=== PATIENT | male | born 1980 | race African-American/Black ===

== ENCOUNTER 2017-03-29 22:59 | Emergency (ER) | payer SELFPAY ==
[~2017-03-29] VITALS: Ht 180.3 cm; Wt 95.3 kg
[~2017-03-29 22:59] MED LIST: ALBUTEROL SULF8.5 GM INH; CLINDAMYCIN HC300 MG ORAL; DOXYCYCLINE MO100 MG ORAL; IBUPROFEN600 MG ORAL; NKM; NORCO 5-325 TA1 EACH ORAL; NORCO1 E1 PO; UNOBMED
[2017-03-29] MEDS ORDERED: Lidocaine 1% MPF 10mg/ml 5ml ONE (23:23)
[2017-03-29] MEDS ORDERED: Lidocaine 1% Plain 30 ml INJ ONE ×2 (23:24→23:30)
[2017-03-29] MEDS ORDERED: Norco 5mg/325mg tab ORAL ONE (23:45)
[2017-03-29] MEDS ORDERED: Azithromycin 250mg tab ORAL ONE (23:45)
[2017-03-29] MEDS ORDERED: HYDROCODON-ACE1 EA15 ORAL (23:57)
[2017-03-29] MEDS ORDERED: DOXYCYCLINE MO100 MG ORAL (23:57)
--- NOTE | 2017-03-29 23:58 | Emergency Room Report ---
History of Present Illness General Chief Complaint: Skin Rash/Abscess Source: Patient Present Illness HPI Is a 36-year-old male with no past history. He presents with 2 issue. This issue is abscess to the right foot. Has been ongoing for last 3 or 4 days. He has similar problem in his arm before. No fever or chills. Worse with walking. 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 Second issue is that he has a penile discharge. Clear color. Ongoing for last 2 days. No fever or chills. Is sexually active with unprotected sex. No joint pain. No fever. Allergies: Coded Allergies: No Known Allergies (Unverified , 01/11/13) Patient History Past Medical History: see triage record, old chart reviewed Past Surgical History: none Pertinent Family History: none Social History: Denies: smoking Immunizations: other Reviewed Nursing Documentation: PMH: Agreed, PSxH: Agreed Nursing Documentation-[facility] Past Medical History: No Stated History Review of Systems Eye: Denies: blurred vision, eye pain ENT: Denies: ear pain, nose congestion, throat swelling Respiratory: Denies: cough, shortness of breath Cardiovascular: Denies: chest pain, palpitations Gastrointestinal: Denies: abdominal pain, diarrhea, nausea, vomiting Musculoskeletal: Denies: back pain, joint pain Skin: Denies: rash Neurological: Denies: headache, numbness Endocrine: Denies: increased thirst, increased urine Hematologic/Lymphatic: Denies: easy bruising All Other Systems: negative except mentioned in HPI Physical Exam Vital Signs Date Time Temp Pulse Resp B/P Pulse Ox O2 Delivery O2 Flow Rate FiO2 03/29/17 23:04 98.1 93 21 145/86 97 Room Air vitals normal Sp02 EP Interpretation: reviewed, normal General Appearance: well appearing, no apparent distress, alert Head: normocephalic, atraumatic Eyes: bilateral eye EOMI, bilateral eye PERRL ENT: hearing grossly normal, normal pharynx Neck: full range of motion, supple, no meningismus Respiratory: chest non-tender, lungs clear, normal breath sounds Cardiovascular #1: regular rate, rhythm, no murmur Gastrointestinal: normal bowel sounds, non tender, no mass, no organomegaly, no bruit, non-distended Musculoskeletal: back normal, normal range of motion, other - Right foot: At the ball of the foot over the fourth and fifth toes, there is a fluctuant and tender area of about 2 cm. He also has calluses over the first metatarsal joint. Also over the heel. Neurologic: alert, oriented x3 Psychiatric: mood/affect normal Skin: warm/dry Procedures Incision and Drainage Incision and Drainage : Consent: Verbal Site: Right foot Blade Size: 11 I & D Procedure: betadine prep, sterile drapes applied Wound Location: lower extremity Anesthesia: 1% Lidocaine Patient Tolerated: Well Complications: None Progress Area clean with Betadine. Local anesthetic 1% lidocaine without epinephrine. After injection, and made a 1 cm incision with 11 blade scalpel. There was small amount of pus expressed. Wound irrigated clean. Patient tolerated procedure without a problem. Medical Decision Making Diagnostic Impression: Primary Impression: Foot abscess, right Additional Impression: Urethritis ER Course Patient presents with of an abscess. Probably infected callous. No evidence of foreign body. No evidence of joint involvement. No necrotizing fasciitis or septic joint. We'll discharge home. Also recommend patient have outpatient testing for HIV, syphilis, hepatitis and other STDs. Also recommend his partners to be treated. Last Vital Signs Date Time Temp Pulse Resp B/P Pulse Ox O2 Delivery O2 Flow Rate FiO2 03/29/17 23:04 98.1 93 21 145/86 97 Room Air Status: improved Disposition: HOME, SELF-CARE Condition: Stable Scripts Hydrocodone/Acetaminophen 5-325* (HYDROCODONE/ACETAMINOPHEN 5-325*) 1 Each Tablet 1 TAB ORAL Q6H Y for For Pain, #20 TAB 0 Refills Prov: PRESLEY GARCIA M.D. 03/29/17 Doxycycline Monohydrate* (DOXYCYCLINE MONOHYDRATE*) 100 Mg Capsule 100 MG ORAL Q12H, #14 CAP 0 Refills Prov: PRESLEY GARCIA M.D. 03/29/17 Referrals: NOT CHOSEN [facility]/,REFERRING (PCP) Patient Instructions: Abscess Additional Instructions: Keep wound clean. Followup your Dr. in 2-3 days recheck. Return if symptom worsen. Recommend outpatient testing for HIV, hepatitis, syphilis, and other STDs. Have your partner treated also. PRESLEY GARCIA M.D. March 29, 2017 23:58
[2017-03-30 00:05] VITALS: BP 139/83
[2017-03-30 00:06] VITALS: BP 145/86
== END 2017-03-30 00:06 | disposition home or self-care (01) ==
LOC: EMR 23:09
DX: L02.611 Cutaneous abscess of right foot (principal); N34.2 Other urethritis
CPT/HCPCS: 10060; 96372; 99284; J0696; J2001

== ENCOUNTER 2017-04-03 20:17 | Emergency (ER) | payer SELFPAY ==
[~2017-04-03] VITALS: Ht 177.8 cm; Wt 95.3 kg
[~2017-04-03 20:17] MED LIST changes: +HYDROCODON-ACE1 EA15 ORAL
[2017-04-03] MEDS ORDERED: Methocarbamol 750mg tab ORAL ONE (21:30)
[2017-04-03] MEDS ORDERED: Ketorolac 60mg Inj IM ONE (21:30)
[2017-04-03] MEDS ORDERED: IBUPROFEN800 MG ORAL (21:33)
[2017-04-03] MEDS ORDERED: ROBAXIN-750750 MG PO (21:33)
--- NOTE | 2017-04-03 21:48 | Emergency Room Report ---
History of Present Illness General Chief Complaint: Lower Back Pain or Injury Source: Patient Present Illness HPI 36YOM walk-in with midline back pain started this morning when he woke up after heavy lifting last night at work. Pain to midline of back, non-radiating. No assoc urinary/fecal incontinence or lower extremity weakness. No previous back injury. Didnt take any OTC meds at home. Allergies: Coded Allergies: No Known Allergies (Unverified , 01/11/13) Patient History Past Medical History: none Past Surgical History: none Pertinent Family History: none Social History: Denies: alcohol use, drug use, smoking Immunizations: UTD Reviewed Nursing Documentation: PMH: Agreed, PSxH: Agreed Nursing Documentation-PMH Past Medical History: No Stated History Review of Systems All Other Systems: negative except mentioned in HPI Physical Exam Vital Signs Date Time Temp Pulse Resp B/P Pulse Ox O2 Delivery O2 Flow Rate FiO2 04/03/17 21:04 98.1 69 20 164/84 94 Room Air Sp02 EP Interpretation: reviewed, abnormal General Appearance: normal inspection, well appearing, no apparent distress, alert, GCS 15, non-toxic Head: normocephalic, atraumatic Eyes: bilateral eye EOMI, bilateral eye PERRL ENT: normal ENT inspection, hearing grossly normal, normal voice Neck: normal inspection, full range of motion, supple, no bony tend Respiratory: normal inspection, lungs clear, normal breath sounds, no respiratory distress, no retraction, no wheezing Cardiovascular #1: regular rate, rhythm, no edema Gastrointestinal: normal inspection, normal bowel sounds, non tender, soft, no guarding, no hernia Genitourinary: no CVA tenderness Musculoskeletal: normal inspection, back normal, normal range of motion, Jeaneth' s Sign negative, other - Mild ttp LBP midline. No deformity or ecchymoses. Neurologic: normal inspection, alert, oriented x3, responsive, speech normal Psychiatric: normal inspection, judgement/insight normal, mood/affect normal Skin: normal inspection, normal color, no rash Medical Decision Making Diagnostic Impression: Primary Impression: Low back pain Qualified Codes: M54.5 - Low back pain ER Course 36YOM with LBP after known exacerbating event. VS notable for HTN likely d/t pain No known history of HTN Analgesia given in ED A: low suspicion for cord compression given well appearance, paravertebral ttp, no focal neuro deficits, absence of midline ttp/masses and pain worse with movement with known exacerbating activity Rx Ibuprofen, Robaxin Last Vital Signs Date Time Temp Pulse Resp B/P Pulse Ox O2 Delivery O2 Flow Rate FiO2 04/03/17 21:04 98.1 69 20 164/84 94 Room Air Status: improved Disposition: HOME, SELF-CARE Condition: Improved Scripts Ibuprofen* (MOTRIN*) 800 Mg Tablet 800 MG ORAL THREE TIMES A DAY for 7 Days, #30 TAB 0 Refills Prov: NEFTALI NORIEGA M.D. 04/03/17 Methocarbamol* (ROBAXIN-750*) 750 Mg Tablet 750 MG PO TID for 7 Days, #30 TAB 0 Refills Prov: NEFTALI NORIEGA M.D. 04/03/17 Patient Instructions: Back Pain, Adult Additional Instructions: - Take ibuprofen with robaxin and food up to 3x a day for pain - Stretch as often as possible, especially before bed - Try alternating heat with ice to see what works better NEFTALI NORIEGA M.D. April 03, 2017 21:48
[2017-04-03 21:54] VITALS: BP_SYST 154; BP_SYST 164; BP_DIAS 74; BP_DIAS 84
== END 2017-04-03 21:55 | disposition home or self-care (01) ==
LOC: EMR 21:55
DX: M54.5 Low back pain (principal)
CPT/HCPCS: 96372; 99284

== ENCOUNTER 2017-09-26 10:34 | Emergency (ER) | payer SELFPAY ==
[~2017-09-26] VITALS: Ht 177.8 cm; Wt 81.6 kg
[~2017-09-26 10:34] MED LIST changes: +IBUPROFEN800 MG ORAL; +ROBAXIN-750750 MG PO
[2017-09-26] MEDS ORDERED: NKM (10:48)
--- NOTE | 2017-09-26 11:42 | Diagnostic Imaging Report ---
Indication: Dyspnea Comparison: 02/20/16 A single view chest radiograph was obtained. Findings: The heart is enlarged. There is a sternotomy present. The lungs are clear. Bones are osteopenic. Impression: No acute disease
[2017-09-26 11:44] LABS: APPEARANCE,URINE CLEAR; BILIRUBIN, URINE NEGATIVE (NEGATIVE); GLUCOSE, URINE (UA) NEGATIVE (NEGATIVE); KETONES,URINE 1+ (NEGATIVE); NITRITE,URINE NEGATIVE (NEGATIVE); PH,URINE 5 (4.5-8.0); PROTEIN,URINE NEGATIVE (NEGATIVE)
[2017-09-26 11:45] LABS: BASOPHILS % (AUTO) 1.3 % (0.0-2.0); EOSINOPHILS % (AUTO) 2.3 % (0.0-3.0); HEMATOCRIT 45.2 % (42.0-52.0); HEMOGLOBIN 15.3 G/DL (14.2-18.0); LYMPHOCYTES % (AUTO) 30.1 % (20.0-45.0); MEAN CORPUSCULAR VOLUME 99 FL (80-99); NEUTROPHILS % (AUTO) 58.4 % (45.0-75.0); PLATELET COUNT 258 K/UL (150-450); RED BLOOD COUNT 4.56 M/UL (4.70-6.10); RED CELL DISTRIBUTION WIDTH 11.9 % (11.6-14.8); WHITE BLOOD COUNT 6.9 K/UL (4.8-10.8)
[2017-09-26 11:52] LABS: ANION GAP 9 mmol/L (5-15); BLOOD UREA NITROGEN 10 mg/dL (7-18); CALCIUM 8.7 MG/DL (8.5-10.1); CARBON DIOXIDE 26 MMOL/L (21-32); CHLORIDE 104 MMOL/L (98-107); CREATININE 0.9 MG/DL (0.55-1.30); POTASSIUM 4.3 MMOL/L (3.5-5.1); SODIUM 139 MMOL/L (136-145)
[2017-09-26 11:54] LABS: COLOR,URINE YELLOW; LEUKOCYTE ESTERASE ,URINE NEGATIVE (NEGATIVE); UROBILINOGEN,URINE NORMAL MG/DL (0.0-1.0)
[2017-09-26 12:08] LABS: ALANINE AMINOTRANSFERASE 37 U/L (12-78); ALBUMIN 3.8 G/DL (3.4-5.0); ALBUMIN/GLOBULIN RATIO 1.2 (1.0-2.7); ALKALINE PHOSPHATASE 73 U/L (46-116); ASPARTATE AMINO TRANSFERASE 31 U/L (15-37); BILIRUBIN,TOTAL 0.5 MG/DL (0.2-1.0); CREATINE KINASE 266 U/L (26-308)
[2017-09-26] MEDS ORDERED: MECLIZINE HCL25 MG ORAL (12:18)
[2017-09-26] MEDS ORDERED: ZOFRAN ODT4 MG ORAL (12:18)
--- NOTE | 2017-09-26 12:23 | Emergency Room Report ---
History of Present Illness General Chief Complaint: Dizziness Source: Patient Present Illness HPI Patient presents with complaints of dizziness Patient reports a sensation of numbness in the anterior neck patient also complained get felt some pain to the right lower back radiation down to the right leg and the lateral calf Denies any fevers or chills he has been nauseated complains of decreased oral intake patient also complains of increased alcohol intake recently denies any diarrhea denies any fevers or chills Allergies: Coded Allergies: No Known Allergies (Unverified , 01/11/13) Patient History Past Medical History: see triage record Pertinent Family History: none Reviewed Nursing Documentation: PMH: Agreed, PSxH: Agreed Nursing Documentation-PMH Past Medical History: No Stated History Review of Systems All Other Systems: negative except mentioned in HPI Physical Exam Vital Signs Date Time Temp Pulse Resp B/P (MAP) Pulse Ox O2 Delivery O2 Flow Rate FiO2 09/26/17 10:44 98.1 78 14 115/75 97 Room Air Sp02 EP Interpretation: reviewed, normal General Appearance: well appearing, no apparent distress Head: normocephalic, atraumatic Eyes: bilateral eye PERRL, bilateral eye EOMI ENT: hearing grossly normal, normal pharynx, TMs + canals normal, uvula midline Neck: full range of motion, supple, no meningismus, no bony tend Respiratory: lungs clear, normal breath sounds, no rhonchi, no respiratory distress, no retraction, no accessory muscle use Cardiovascular #1: normal peripheral pulses, regular rate, rhythm, no edema, no gallop, no JVD, no murmur Gastrointestinal: normal bowel sounds, non tender, soft, no mass, no organomegaly, non-distended, no guarding, no hernia, no pulsatile mass, no rebound Genitourinary: no CVA tenderness Musculoskeletal: normal inspection Neurologic: oriented x3, responsive, 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9 K/UL (4.8-10.8) Red Blood Count 4.56 M/UL (4.70-6.10) Hemoglobin 15.3 G/DL (14.2-18.0) Hematocrit 45.2 % (42.0-52.0) Mean Corpuscular Volume 99 FL (80-99) Mean Corpuscular Hemoglobin 33.6 PG (27.0-31.0) Mean Corpuscular Hemoglobin Concent 33.9 G/DL (32.0-36.0) Red Cell Distribution Width 11.9 % (11.6-14.8) Platelet Count 258 K/UL (150-450) Mean Platelet Volume 7.6 FL (6.5-10.1) Neutrophils (%) (Auto) 58.4 % (45.0-75.0) Lymphocytes (%) (Auto) 30.1 % (20.0-45.0) Monocytes (%) (Auto) 8.0 % (1.0-10.0) Eosinophils (%) (Auto) 2.3 % (0.0-3.0) Basophils (%) (Auto) 1.3 % (0.0-2.0) Sodium Level 139 MMOL/L (136-145) Potassium Level 4.3 MMOL/L (3.5-5.1) Chloride Level 104 MMOL/L (98-107) Carbon Dioxide Level 26 MMOL/L (21-32) Anion Gap 9 mmol/L (5-15) Blood Urea Nitrogen 10 mg/dL (7-18) Creatinine 0.9 MG/DL (0.55-1.30) Estimat Glomerular Filtration Rate > 60 mL/min (>60) Glucose Level 113 MG/DL (74-106) Calcium Level 8.7 MG/DL (8.5-10.1) Total Bilirubin 0.5 MG/DL (0.2-1.0) Aspartate Amino Transf (AST/SGOT) 31 U/L (15-37) Alanine Aminotransferase (ALT/SGPT) 37 U/L (12-78) Alkaline Phosphatase 73 U/L (46-116) Total Creatine Kinase 266 U/L (26-308) Creatine Kinase MB 3.0 NG/ML (0.0-3.6) Creatine Kinase MB Relative Index 1.1 Troponin I 0.000 ng/mL (0.000-0.056) Total Protein 7.1 G/DL (6.4-8.2) Albumin 3.8 G/DL (3.4-5.0) Globulin 3.3 g/dL Albumin/Globulin Ratio 1.2 (1.0-2.7) Lipase 188 U/L (73-393) Serum Alcohol < 3 mg/dL Urine Color Yellow Urine Appearance Clear Urine pH 5 (4.5-8.0) Urine Specific [place] 1.020 (1.005-1.035) Urine Protein Negative (NEGATIVE) Urine Glucose (UA) Negative (NEGATIVE) Urine Ketones 1+ (NEGATIVE) Urine Occult Blood Negative (NEGATIVE) Urine Nitrite Negative (NEGATIVE) Urine Bilirubin Negative (NEGATIVE) Urine Urobilinogen Normal MG/DL (0.0-1.0) Urine Leukocyte Esterase Negative (NEGATIVE) Urine Opiates Screen Negative (NEGATIVE) Urine Barbiturates Screen Negative (NEGATIVE) Phencyclidine (PCP) Screen Negative (NEGATIVE) Urine Amphetamines Screen Negative (NEGATIVE) Urine Benzodiazepines Screen Negative (NEGATIVE) Urine Cocaine Screen Negative (NEGATIVE) Urine Marijuana (THC) Screen Positive (NEGATIVE) Rhythm Strip Diag. Results EP Interpretation: yes Rate: 67 Rhythm: NSR, no PVC's, no ectopy Chest X-Ray Diagnostic Results Chest X-Ray Diagnostic Results : Chest X-Ray Ordered: Yes # of Views/Limited/Complete: 1 View Indication: Chest Pain EP Interpretation: Yes Interpretation: no consolidation, no effusion, no pneumothorax Impression: No acute disease Electronically Signed by: Conrad Mckee DO Last Vital Signs Date Time Temp Pulse Resp B/P (MAP) Pulse Ox O2 Delivery O2 Flow Rate FiO2 09/26/17 10:44 98.1 78 14 115/75 97 Room Air Status: improved Disposition: HOME, SELF-CARE Condition: Improved Scripts Ondansetron Odt* (ZOFRAN ODT*) 4 Mg Tab.rapdis 4 MG ORAL Q6H Y for Nausea & Vomiting, #10 TAB 0 Refills Prov: CONRAD MCKEE D.O. 09/26/17 Meclizine Hcl* (MECLIZINE*) 25 Mg Tablet 25 MG ORAL THREE TIMES A DAY, #12 TAB Prov: CONRAD MCKEE D.O. 09/26/17 Referrals: NOT CHOSEN [facility],REFERRING (PCP) Patient Instructions: Influenza, Adult, [id number], Dizziness Additional Instructions: Patient is provided with the discharge instructions notified to follow up with primary doctor in the next 2-3 days otherwise return to the er with any worsening symptoms. Please note that this report is being documented using DRAGON technology. This can lead to erroneous entry secondary to incorrect interpretation by the dictating instrument. CONRAD MCKEE D.O. Sep 26, 2017 12:23
[2017-09-26 12:30] VITALS: BP 122/76
[2017-09-26 12:40] VITALS: BP 122/76
--- NOTE | 2017-10-05 16:13 | Cardiology Report ---
APPROVED REPORT EKG Measurement Heart [id number] Normal sinus rhythm Normal ECG
--- NOTE | 2017-10-05 16:13 | Cardiology Report ---
APPROVED REPORT EKG Measurement Heart [id number] Normal sinus rhythm Normal ECG
--- NOTE | 2017-10-05 16:13 | Cardiology Report ---
APPROVED REPORT EKG Measurement Heart [id number] [place] [id number] Normal sinus rhythm Normal ECG
== END 2017-09-26 12:40 | disposition home or self-care (01) ==
LOC: EMR 11:40
DX: R42 Dizziness and giddiness (principal); J11.1 Influenza due to unidentified influenza virus with other respiratory manifestations
CPT/HCPCS: 36415; 71010; 80053; 80307; 81003; 82550; 82553; 83690; 84484; 85025; 93005; 96361; 96374; 99284; G0480; 80329

== ENCOUNTER 2017-12-04 16:34 | Emergency (ER) | payer MEDICAID ==
[~2017-12-04] VITALS: Ht 177.8 cm; Wt 81.6 kg
[~2017-12-04 16:34] MED LIST changes: +MECLIZINE HCL25 MG ORAL; +ZOFRAN ODT4 MG ORAL
[2017-12-04 17:29] LABS: APPEARANCE,URINE CLEAR; BILIRUBIN, URINE NEGATIVE (NEGATIVE); COLOR,URINE PALE YELLOW; GLUCOSE, URINE (UA) NEGATIVE (NEGATIVE); KETONES,URINE NEGATIVE (NEGATIVE); LEUKOCYTE ESTERASE ,URINE NEGATIVE (NEGATIVE); NITRITE,URINE NEGATIVE (NEGATIVE); PH,URINE 6.5 (4.5-8.0); PROTEIN,URINE NEGATIVE (NEGATIVE); UROBILINOGEN,URINE NORMAL MG/DL (0.0-1.0)
[2017-12-04] MEDS ORDERED: Azithromycin 250mg tab ORAL ONE (17:45)
[2017-12-04] MEDS ORDERED: Lidocaine 1% MPF 10mg/ml 5ml INJ ONE (17:45)
[2017-12-04 18:04] VITALS: BP 140/76
--- NOTE | 2017-12-04 21:17 | Emergency Room Report ---
History of Present Illness General Chief Complaint: Male Urogenital Problems Source: Patient Present Illness HPI 37-year-old male presents to ED complaining of clear penile discharge x1 day. Patient reports history of sexual intercourse with single partner; states she has similar symptoms. Patient reports history of similar symptoms; states was treated for Chlamydia at that time with complete relief of symptoms. Patient states he received same infection from same partner as previously; states he does not believe partner was treated her infection and "caught it from her again". Patient denies use of condoms during sex. Patient denies fever, hematuria, dysuria, abdominal pain, rash, open wounds. Allergies: Coded Allergies: No Known Allergies (Unverified , 01/11/13) Patient History Past Medical History: see triage record Past Surgical History: none Immunizations: UTD Reviewed Nursing Documentation: PMH: Agreed, PSxH: Agreed Nursing Documentation-PM[facility] Past Medical History: No Stated History Review of Systems All Other Systems: negative except mentioned in HPI Physical Exam Vital Signs Date Time Temp Pulse Resp B/P (MAP) Pulse Ox O2 Delivery O2 Flow Rate FiO2 12/04/17 17:00 99.0 83 14 122/77 98 Room Air Sp02 EP Interpretation: reviewed, normal General Appearance: no apparent distress, alert, GCS 15, non-toxic Head: normocephalic, atraumatic Eyes: bilateral eye normal inspection, bilateral eye PERRL, bilateral eye EOMI ENT: normal pharynx, normal voice, uvula midline Neck: full range of motion Respiratory: chest non-tender, lungs clear, normal breath sounds, speaking full sentences Cardiovascular #1: regular rate, rhythm, no edema Genitourinary: deferred Musculoskeletal: gait/station normal, normal range of motion Neurologic: alert, oriented x3, responsive, motor strength/tone normal, sensory intact, speech normal Psychiatric: mood/affect normal Skin: normal color, no rash, warm/dry, well hydrated Medical Decision Making PA Attestation Dr. Hernandez is my supervising Physician whom patient management has been discussed with. Diagnostic Impression: Primary Impression: STI (sexually transmitted infection) ER Course Pt. presents to the ED c/o STI. Ddx considered but are not limited to gonorrhea, chalmydia, cystitis, pylonephritis. Vital signs: are WNL, pt. is afebrile ORDERS: UA negative for infection. ED INTERVENTIONS: -Azithromycin -Rocephin DISCHARGE: Advised to use safe sex practices including but not limited to use of condoms. Instructed patient to follow up with STI clinic and/or PCP for future STI treatment and prevention. Instructed patient to inform partner of need for treatment to prevent future infection. At this time pt. is stable for d/c to home. Will provide printed patient care instructions, and any necessary prescriptions. Care plan and follow up instructions have been discussed with the patient prior to discharge Labs Test 12/04/17 17:11 Urine Color Pale yellow Urine Appearance Clear Urine pH 6.5 (4.5-8.0) Urine Specific [employer] 1.015 (1.005-1.035) Urine Protein Negative (NEGATIVE) Urine Glucose (UA) Negative (NEGATIVE) Urine Ketones Negative (NEGATIVE) Urine Occult Blood Negative (NEGATIVE) Urine Nitrite Negative (NEGATIVE) Urine Bilirubin Negative (NEGATIVE) Urine Urobilinogen Normal MG/DL (0.0-1.0) Urine Leukocyte Esterase Negative (NEGATIVE) Last Vital Signs Date Time Temp Pulse Resp B/P (MAP) Pulse Ox O2 Delivery O2 Flow Rate FiO2 12/04/17 18:04 70 18 140/76 96 Room Air 12/04/17 18:04 97.5 Disposition: HOME, SELF-CARE Condition: Stable Referrals: [facility],REFERR[facility] (PCP) Patient Instructions: Sexually Transmitted Disease, [id number] Additional Instructions: Followup with primary care provider in 3 -5 days. Alert all sexual partners that they will need to be treated as well. Take medications as directed. Patient questions asked and answered. ER precautions given, patient instructed to return to ER immediately for any new or worsening of symptoms. Manuel Carreon Dec 04, 2017 21:17
== END 2017-12-04 18:04 | disposition home or self-care (01) ==
LOC: EMR 17:41
DX: A64 Unspecified sexually transmitted disease (principal); R36.9 Urethral discharge, unspecified
CPT/HCPCS: 81003; 96372; 99284; J0696; Q0144

== ENCOUNTER 2019-05-17 19:28 | Emergency (ER) | payer MEDICAID ==
[~2019-05-17] VITALS: Ht 177.8 cm; Wt 89.8 kg
--- NOTE | 2019-05-17 19:37 | NUR ---
ED Nurse Note: pt walked in c/o open wound and pain on right foot, pt states he was scratching his foot and it progressively worsen past two wks. noted large wound bottom of the right toes and foot with foul odor, possible necrotic tissue and mild drainage. will cont monitor.
[2019-05-17 19:42] VITALS: BP 137/87
[2019-05-17] MEDS ORDERED: Piperacillin/Tazobactam 3.375 GM in NS 110 ML IVPB ONE (20:00)
[2019-05-17 20:25] LABS: BASOPHILS % (AUTO) 1.3 % (0.0-2.0); EOSINOPHILS % (AUTO) 1.9 % (0.0-3.0); HEMATOCRIT 43.3 % (42.0-52.0); HEMOGLOBIN 15.1 G/DL (14.2-18.0); LYMPHOCYTES % (AUTO) 37.8 % (20.0-45.0); MEAN CORPUSCULAR VOLUME 97 FL (80-99); MONOCYTES % (AUTO) 10.6 % (1.0-10.0); NEUTROPHILS % (AUTO) 48.4 % (45.0-75.0); PLATELET COUNT 273 K/UL (150-450); RED BLOOD COUNT 4.48 M/UL (4.70-6.10); RED CELL DISTRIBUTION WIDTH 10.8 % (11.6-14.8); WHITE BLOOD COUNT 10.6 K/UL (4.8-10.8)
[2019-05-17 20:35] LABS: ALANINE AMINOTRANSFERASE 32 U/L (12-78); ALBUMIN 3.8 G/DL (3.4-5.0); ALBUMIN/GLOBULIN RATIO 1.1 (1.0-2.7); ALKALINE PHOSPHATASE 77 U/L (46-116); ANION GAP 9 mmol/L (5-15); ASPARTATE AMINO TRANSFERASE 23 U/L (15-37); BILIRUBIN,TOTAL 0.4 MG/DL (0.2-1.0); BLOOD UREA NITROGEN 14 mg/dL (7-18); CARBON DIOXIDE 27 MMOL/L (21-32); CHLORIDE 108 MMOL/L (98-107); CREATININE 1.1 MG/DL (0.55-1.30); POTASSIUM 3.7 MMOL/L (3.5-5.1); SODIUM 144 MMOL/L (136-145)
[2019-05-17 21:47] LABS: CALCIUM 8.9 MG/DL (8.5-10.1)
[2019-05-17] MEDS ORDERED: CEPHALEXIN500 MG ORAL (21:53)
[2019-05-17] MEDS ORDERED: NYSTATIN15 GM TOPIC (21:53)
[2019-05-17] MEDS ORDERED: DOXYCYCLINE MO100 MG ORAL (21:53)
--- NOTE | 2019-05-17 22:06 | NUR ---
ED Nurse Note: pt cleared to be d/c per ERMD, pt discharge and aftercare instruction provided w/ prescription, pt education done via discussion and handout, pt advised to follow up with pcp or return to ed if changes in condition, pt verbalized understanding and agrees with plan, wound care done, iv d/c and id band removed, pt vss, ambulatory w/ steady gait, left w/ all belongings. extra wound care supply given prior to d.c.
[2019-05-17 22:07] VITALS: BP 124/56
--- NOTE | 2019-05-17 23:03 | Emergency Room Report ---
History of Present Illness General Chief Complaint: Skin Rash/Abscess Source: Patient Present Illness HPI Patient is a 38-year-old male who presented after increased discomfort to his right foot. Patient had reportedly had noticed increased discomfort and drainage for the past 1 week. He reports having prior history of eczema and had been having some discomfort between his toes into the bottom of his feet. Patient had continued to work and continued to have some discomfort. He reports having some slight increase in swelling. He denies history of diabetes he reports having some urethral discharge. He reports feeling his toes well. He denies any prior history of neuropathy or diabetes. He does state he is a smoker. Allergies: Coded Allergies: No Known Allergies (Unverified , 01/11/13) Patient History Past Medical History: see triage record Reviewed Nursing Documentation: PMH: Agreed; PSxH: Agreed Nursing Documentation-PMH Past Medical History: No Stated History Review of Systems All Other Systems: negative except mentioned in HPI Physical Exam Vital Signs Date Time Temp Pulse Resp B/P (MAP) Pulse Ox O2 Delivery O2 Flow Rate FiO2 05/17/19 19:29 98.1 87 16 137/87 (104) 98 Room Air Sp02 EP Interpretation: reviewed, normal General Appearance: normal inspection, well appearing, no apparent distress, alert, GCS 15, non-toxic Head: atraumatic ENT: normal ENT inspection, hearing grossly normal, normal voice Neck: normal inspection, full range of motion, supple, no bony tend Respiratory: normal inspection, lungs clear, normal breath sounds, no respiratory distress, no retraction, no wheezing Cardiovascular #1: regular rate, rhythm, no edema Gastrointestinal: normal inspection, normal bowel sounds, non tender, soft, no guarding, no hernia Musculoskeletal: back normal, normal range of motion Neurologic: normal inspection, alert, oriented x3, responsive, 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 no discharge or swelling Medical Decision Making Diagnostic Impression: Primary Impression: Foot ulcer ER Course Patient presented for a foot ulcer. Differential diagnoses include was not limited to neuropathy, foreign body, diabetes among others. Because of complexity of patient's case laboratory testing and imaging studies were ordered. E study showed normal white blood count as well as a normal sed rate. Patient was noted to have some ulcerations between his toes. A sterile dressing was reapplied and patient's wound was cleansed. He was advised wound care. Patient is given IV antibiotics. He is given prescription for oral and antibiotics which which should cover his urethritis. Patient was advised to recheck for full STD testing. He was advised to return if he had any worsening of condition or other concerns. Labs Test 05/17/19 19:40 White Blood Count 10.6 K/UL (4.8-10.8) Red Blood Count 4.48 M/UL (4.70-6.10) Hemoglobin 15.1 G/DL (14.2-18.0) Hematocrit 43.3 % (42.0-52.0) Mean Corpuscular Volume 97 FL (80-99) Mean Corpuscular Hemoglobin 33.6 PG (27.0-31.0) Mean Corpuscular Hemoglobin Concent 34.8 G/DL (32.0-36.0) Red Cell Distribution Width 10.8 % (11.6-14.8) Platelet Count 273 K/UL (150-450) Mean Platelet Volume 7.3 FL (6.5-10.1) Neutrophils (%) (Auto) 48.4 % (45.0-75.0) Lymphocytes (%) (Auto) 37.8 % (20.0-45.0) Monocytes (%) (Auto) 10.6 % (1.0-10.0) Eosinophils (%) (Auto) 1.9 % (0.0-3.0) Basophils (%) (Auto) 1.3 % (0.0-2.0) Erythrocyte Sedimentation Rate 4 MM/HR (0-15) Sodium Level 144 MMOL/L (136-145) Potassium Level 3.7 MMOL/L (3.5-5.1) Chloride Level 108 MMOL/L (98-107) Carbon Dioxide Level 27 MMOL/L (21-32) Anion Gap 9 mmol/L (5-15) Blood Urea Nitrogen 14 mg/dL (7-18) Creatinine 1.1 MG/DL (0.55-1.30) Estimat Glomerular Filtration Rate > 60 mL/min (>60) Glucose Level 95 MG/DL (74-106) Calcium Level 8.9 MG/DL (8.5-10.1) Total Bilirubin 0.4 MG/DL (0.2-1.0) Aspartate Amino Transf (AST/SGOT) 23 U/L (15-37) Alanine Aminotransferase (ALT/SGPT) 32 U/L (12-78) Alkaline Phosphatase 77 U/L (46-116) C-Reactive Protein, Quantitative < 0.4 mg/dL (0.00-0.90) Total Protein 7.3 G/DL (6.4-8.2) Albumin 3.8 G/DL (3.4-5.0) Globulin 3.5 g/dL Albumin/Globulin Ratio 1.1 (1.0-2.7) Last Vital Signs Date Time Temp Pulse Resp B/P (MAP) Pulse Ox O2 Delivery O2 Flow Rate FiO2 05/17/19 22:07 98.1 80 16 124/56 98 Room Air Status: improved Disposition: HOME, SELF-CARE Condition: Stable Scripts Nystatin* (NYSTATIN*) 15 Gm Cream..g. 1 APPLIC TOPIC THREE TIMES A DAY, #15 GM Prov: Salvador Crawley MD 05/17/19 Cephalexin* (KEFLEX*) 500 Mg Capsule 500 MG ORAL EVERY 6 HOURS, #28 CAP Prov: Salvador Crawley MD 05/17/19 Doxycycline Monohydrate* (DOXYCYCLINE MONOHYDRATE*) 100 Mg Capsule 100 MG ORAL Q12H, #14 CAP 0 Refills Prov: Salvador Crawley MD 05/17/19 Referrals: [facility]ERR[facility] (PCP) Patient Instructions: Skin Ulcer Additional Instructions: Keep your feet clean and dry. Elevate as much as possible. Return if worse. Salvador Crawley MD May 17, 2019 23:03
--- NOTE | 2019-05-18 12:36 | Diagnostic Imaging Report ---
Indication: Foot Pain Comparison: None Findings: 3 views of the right foot were obtained. No acute fractures, malalignment, erosions or periostitis are identified. 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 Patient has had prior surgery. There is a fragment of a screw in the distal tibia. Impression: No acute findings.
--- NOTE | 2019-05-18 12:37 | Diagnostic Imaging Report ---
Indication: Cough Comparison: 09/26/2017 A single view chest radiograph was obtained. Findings: Cardiomediastinal appearance is within normal limits for age. The lungs are clear. Pulmonary vascularity is appropriate. The diaphragmatic contour is smooth and costophrenic angles are sharp. No pleural effusions are identified. The bones are unremarkable. Impression: No acute findings
--- NOTE | 2019-05-19 16:07 | Cardiology Report ---
APPROVED REPORT EKG Measurement Heart [id number] Suspect arm lead reversal, interpretation assumes no reversal Unusual P axis, possible ectopic atrial rhythm Right axis deviation Nonspecific ST and T wave abnormality Abnormal ECG
== END 2019-05-17 22:07 | disposition home or self-care (01) ==
LOC: EMR 19:44
DX: L97.519 Non-pressure chronic ulcer of other part of right foot with unspecified severity (principal); F17.200 Nicotine dependence, unspecified, uncomplicated
CPT/HCPCS: 36415; 71045; 73630; 80053; 85025; 85651; 86140; 93005; 96365; 99284; J2543

== ENCOUNTER 2019-06-04 18:50 | Emergency (ER) | payer BC, MEDICAID ==
[~2019-06-04] VITALS: Ht 175.3 cm; Wt 88.9 kg
[~2019-06-04 18:50] MED LIST changes: +CEPHALEXIN500 MG ORAL; +NYSTATIN15 GM TOPIC
--- NOTE | 2019-06-04 19:21 | NUR ---
ED Nurse Note: Patient presents with complaints of right foot wound, recurrent. 4 1/2 toe involvement. Purrulent, serosanguineous drainage; color straw yellow.
[2019-06-04 19:24] VITALS: BP 134/92
[2019-06-04] MEDS ORDERED: Vancomycin 1.5 GM in NS 275 ML IVPB ONE (19:30)
[2019-06-04] MEDS ORDERED: cefTRIAXone 1 GM in NS 55 ML IVPB ONE (19:30)
--- NOTE | 2019-06-04 19:34 | Emergency Room Report ---
History of Present Illness General Chief Complaint: Skin Rash/Abscess Source: Patient (Conrad Canales ) Present Illness HPI Patient presents with continued discharge and discomfort to the right foot patient has had previous attempt of oral antibiotics Reports being seen at another facility as well The area have been wrapped And feels that the wrapping had also worsen some of the symptoms Denies any fevers denies any chills denies any calf pain he does have some discomfort to the foot on the right side denies any previous history of diabetes (Conrad Canales DO) Allergies: Coded Allergies: No Known Allergies (Unverified , 01/11/13) Patient History Past Medical History: see triage record Pertinent Family History: none Reviewed Nursing Documentation: PMH: Agreed; PSxH: Agreed (Conrad Canales DO) Nursing Documentation-PMH Past Medical History: No Stated History (Conrad Canales DO) Review of Systems All Other Systems: negative except mentioned in HPI (Conrad Canales DO) Physical Exam Vital Signs Date Time Temp Pulse Resp B/P (MAP) Pulse Ox O2 Delivery O2 Flow Rate FiO2 06/04/19 19:07 98.1 78 18 134/92 (106) 97 Room Air Sp02 EP Interpretation: reviewed, normal General Appearance: well appearing, no apparent distress Head: normocephalic, atraumatic Eyes: bilateral eye PERRL, bilateral eye EOMI ENT: hearing grossly normal, normal pharynx, TMs + canals normal, uvula midline Neck: full range of motion, supple, no meningismus, no bony tend Respiratory: lungs clear, normal breath sounds, no rhonchi, no respiratory distress, no retraction, no accessory muscle use Cardiovascular #1: normal peripheral pulses, regular rate, rhythm, no edema, no gallop, no JVD, no murmur Gastrointestinal: normal bowel sounds, non tender, soft, no mass, no organomegaly, non-distended, no guarding, no hernia, no pulsatile mass, no rebound Genitourinary: no CVA tenderness Musculoskeletal: normal inspection Neurologic: oriented x3, responsive, 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, motor strength/ tone normal, sensory intact Psychiatric: mood/affect normal Skin: other - Creation and skin breakdown between all digits on the right foot , mild surrounding erythema and fluctuance as well Lymphatic: normal inspection, no adenopathy (Conrad Canales DO) Medical Decision Making Diagnostic Impression: Primary Impression: Foot ulcer ER Course Given the patient's history exam and presentation there appears to be extensive areas of cellulitis, also likely fungal type pathology Patient's blood work is at baseline levels he was initiated on IV antibiotics And this will require further inpatient care as there has been failed outpatient attempt Labs Test 06/04/19 19:35 White Blood Count 8.7 K/UL (4.8-10.8) Red Blood Count 4.67 M/UL (4.70-6.10) Hemoglobin 15.4 G/DL (14.2-18.0) Hematocrit 44.6 % (42.0-52.0) Mean Corpuscular Volume 95 FL (80-99) Mean Corpuscular Hemoglobin 32.9 PG (27.0-31.0) Mean Corpuscular Hemoglobin Concent 34.4 G/DL (32.0-36.0) Red Cell Distribution Width 10.6 % (11.6-14.8) Platelet Count 289 K/UL (150-450) Mean Platelet Volume 7.6 FL (6.5-10.1) Neutrophils (%) (Auto) 51.5 % (45.0-75.0) Lymphocytes (%) (Auto) 35.8 % (20.0-45.0) Monocytes (%) (Auto) 9.0 % (1.0-10.0) Eosinophils (%) (Auto) 2.4 % (0.0-3.0) Basophils (%) (Auto) 1.4 % (0.0-2.0) Sodium Level 139 MMOL/L (136-145) Potassium Level 3.9 MMOL/L (3.5-5.1) Chloride Level 104 MMOL/L (98-107) Carbon Dioxide Level 29 MMOL/L (21-32) Anion Gap 6 mmol/L (5-15) Blood Urea Nitrogen 11 mg/dL (7-18) Creatinine 1.1 MG/DL (0.55-1.30) Estimat Glomerular Filtration Rate > 60 mL/min (>60) Glucose Level 103 MG/DL (74-106) Lactic Acid Level 0.90 mmol/L (0.4-2.0) Calcium Level 8.8 MG/DL (8.5-10.1) Total Bilirubin 0.4 MG/DL (0.2-1.0) Aspartate Amino Transf (AST/SGOT) 20 U/L (15-37) Alanine Aminotransferase (ALT/SGPT) 36 U/L (12-78) Alkaline Phosphatase 72 U/L (46-116) Creatine Kinase MB 1.0 NG/ML (0.0-3.6) Total Protein 7.4 G/DL (6.4-8.2) Albumin 3.7 G/DL (3.4-5.0) Globulin 3.7 g/dL Albumin/Globulin Ratio 1.0 (1.0-2.7) (Conrad Canales DO) ER Course Patient presented for foot ulcer. Patient was endorsed to me by Dr. Canales pending final disposition. Patient was discussed with Dr. Dean and patient will be transferred to [facility] facility under the care of Dr. Bagley (Salvador Crawley MD) Last Vital Signs Date Time Temp Pulse Resp B/P (MAP) Pulse Ox O2 Delivery O2 Flow Rate FiO2 06/04/19 19:24 98.1 89 18 134/92 97 Room Air Status: improved (Conrad Canales DO) Disposition: XFER SHT-TRM HOSP Condition: Improved Conrad Canales DO Jun 04, 2019 19:34 Salvador Crawley MD Jun 04, 2019 20:58
--- NOTE | 2019-06-04 19:44 | NUR ---
ED Nurse Note: IV 20G started at right AC, blood labs drawn.
[2019-06-04 20:05] LABS: BASOPHILS % (AUTO) 1.4 % (0.0-2.0); EOSINOPHILS % (AUTO) 2.4 % (0.0-3.0); HEMATOCRIT 44.6 % (42.0-52.0); HEMOGLOBIN 15.4 G/DL (14.2-18.0); LYMPHOCYTES % (AUTO) 35.8 % (20.0-45.0); MEAN CORPUSCULAR VOLUME 95 FL (80-99); NEUTROPHILS % (AUTO) 51.5 % (45.0-75.0); PLATELET COUNT 289 K/UL (150-450); RED BLOOD COUNT 4.67 M/UL (4.70-6.10); RED CELL DISTRIBUTION WIDTH 10.6 % (11.6-14.8); WHITE BLOOD COUNT 8.7 K/UL (4.8-10.8)
[2019-06-04 20:15] LABS: ANION GAP 6 mmol/L (5-15); BLOOD UREA NITROGEN 11 mg/dL (7-18); CALCIUM 8.8 MG/DL (8.5-10.1); CARBON DIOXIDE 29 MMOL/L (21-32); CHLORIDE 104 MMOL/L (98-107); CREATININE 1.1 MG/DL (0.55-1.30); POTASSIUM 3.9 MMOL/L (3.5-5.1); SODIUM 139 MMOL/L (136-145)
[2019-06-04 20:29] LABS: ALANINE AMINOTRANSFERASE 36 U/L (12-78); ALBUMIN 3.7 G/DL (3.4-5.0); ALKALINE PHOSPHATASE 72 U/L (46-116); ASPARTATE AMINO TRANSFERASE 20 U/L (15-37); BILIRUBIN,TOTAL 0.4 MG/DL (0.2-1.0)
--- NOTE | 2019-06-04 20:44 | NUR ---
ED Nurse Note: Patient relaxing with girlfriend at bedside, no complaints of pain at this time.
[2019-06-04 21:09] VITALS: BP 133/94
--- NOTE | 2019-06-04 21:44 | NUR ---
ED Nurse Note: Patient relaxing vital signs stable.
--- NOTE | 2019-06-04 22:44 | NUR ---
ED Nurse Note: Patient tolerated IV atibiotics well, no s/s of acute distress. Will continue to monitor.
[2019-06-04 23:16] VITALS: BP 133/94
--- NOTE | 2019-06-04 23:16 | NUR ---
ED Nurse Note: Patient cleared for discharge, report called into male RN Elizabeth. [facility] tranport here to pick patient up now. Patient A&Ox4, vital signs stable and documented prior to departure.
== END 2019-06-04 23:16 | disposition home or self-care (01) ==
LOC: EMR 19:29
DX: L97.519 Non-pressure chronic ulcer of other part of right foot with unspecified severity (principal)
CPT/HCPCS: 36415; 80053; 82553; 83605; 85025; 87040; 96365; 96366; 96367; 99285; J0696; J3370; J7050